=== PATIENT | female | born 1985 | race African-American/Black ===

== ENCOUNTER 2017-09-08 19:32 | Emergency (ER) | payer OTHER, BC ==
[~2017-09-08] VITALS: Ht 165.1 cm; Wt 86.4 kg
[~2017-09-08 19:32] MED LIST: AMOXICILLIN500 MG PO; AUGMENTIN875TAB PO; BENZONATATE200 MG PO; DIFLUCAN150 MG PO; FLAGYL500 MG OR; MIRALAX3350 NF PO; ROBITUSSIN AC OR; ROCEPHIN 1 GM1 GM IM
[2017-09-08 19:59] LABS: HEMATOCRIT 39.3 % (37.0-47.0); HEMOGLOBIN 12.3 g/dl (12.0-16.0); IMMATURE GRANULOCYTES 0.1 % (0.0-1.0); MEAN CELL VOLUME 77.1 fL CALC (80.0-100.0); MEAN CORPUSCULAR HGB 24.1 pG CALC (26.0-32.0); MEAN CORPUSCULAR HGB CONC 31.3 g/L CALC (32.0-36.0); NEUT# 2.29 thou/uL (2.00-7.15); RED BLOOD COUNT 5.1 mill/uL (4.20-5.60); RED CELL DISTRI WIDTH 16.9 % (11.5-15.5)
[2017-09-08 21:32] LABS: ALBUMIN 4.1 g/dL (3.2-5.0); ALKALINE PHOSPHATASE 88 u/l (38-126); ANION GAP 17 (6-22 (CALC)); BILIRUBIN, TOTAL 0.6 mg/dL (0.0-1.4); BUN 10 mg/dL (7-17); BUN/CREATININE RATIO 13 (12-20 (CALC)); CARBON DIOXIDE 22 mmol/l (22-30); CHLORIDE 107 mmol/l (95-108); CREATININE 0.8 mg/dL (0.5-1.0); GFR > 60 ML/MIN (>=60 (CALC)); GFR FOR AFR.AMER. > 60 ML/MIN (>=60 (CALC)); POTASSIUM 4.1 mmol/l (3.5-5.1); SGOT/AST 14 u/l (14-36); SGPT/ALT 20 u/l (9-52); SODIUM 142 mmol/l (137-146); TOTAL PROTEIN 7.6 g/dL (6.3-8.2)
[2017-09-08] MEDS ORDERED: TRAMADOL HCL50 MG PO (23:22)
[2017-09-08] MEDS ORDERED: VOLTAREN - GENE75 MG PO (23:22)
[2017-09-08 23:45] LABS: URINE BILIRUBIN - DIPSTICK NEGATIVE (NEGATIVE); URINE BLOOD DIPSTICK NEGATIVE (NEGATIVE); URINE COLOR YELLOW; URINE GLUCOSE - DIPSTICK NEGATIVE (NEGATIVE); URINE KETONE NEGATIVE (NEGATIVE); URINE LEUK ESTERASE NEGATIVE (Negative); URINE NITRITE - DIPSTICK NEGATIVE (Negative); URINE PROTEIN - DIPSTICK NEGATIVE (NEG-TRACE); URINE UROBILINOGEN - DIPSTICK 0.2 E.U./dL (0.2)
[2017-09-08 23:47] VITALS: BP 119/64
[2017-09-08 23:48] LABS: URINE CLARITY CLEAR
== END 2017-09-08 23:40 | disposition home or self-care (01) | DRG 90 ==
LOC: ED 19:32
PROVIDERS: Family Medicine
DX: S06.0X0A Concussion without loss of consciousness, initial encounter (principal); S16.1XXA Strain of muscle, fascia and tendon at neck level, initial encounter; S46.911A Strain of unspecified muscle, fascia and tendon at shoulder and upper arm level, right arm, initial encounter; V49.50XA Passenger injured in collision with unspecified motor vehicles in traffic accident, initial encounter

== ENCOUNTER 2023-04-21 14:31 | Emergency (ER) | payer SELFPAY ==
[~2023-04-21] VITALS: Ht 165.1 cm; Wt 97.0 kg
[~2023-04-21 14:31] MED LIST changes: +TRAMADOL HCL50 MG PO; +VOLTAREN - GENE75 MG PO
[2023-04-21 14:51] VITALS: BP 141/88
[2023-04-21] MEDS ORDERED: NAPROXEN500 MG PO (14:51)
[2023-04-21] MEDS ORDERED: AMOX/K CLAV875 M1 PO (14:51)
[2023-04-21] MEDS ORDERED: FLOXIN OTIC0.3 % AS (14:51)
[2023-04-21 15:00] VITALS: BP 137/94
[2023-04-21 15:09] VITALS: BP 141/88
== END 2023-04-21 15:13 | disposition home or self-care (01) | DRG 153 ==
LOC: ED 14:31
DX: H66.92 Otitis media, unspecified, left ear (principal); H60.92 Unspecified otitis externa, left ear; J02.9 Acute pharyngitis, unspecified